=== PATIENT | male | born 1965 | race African-American/Black ===

== ENCOUNTER 2021-08-23 10:12 | Emergency (ER) | payer OTHER ==
[~2021-08-23] VITALS: Ht 160 cm; Wt 68.0 kg
[2021-08-23 11:16] VITALS: BP 181/80; TEMP 99
== END 2021-08-23 11:16 | disposition home or self-care (01) ==
LOC: ED 10:12
DX: N39.0 Urinary tract infection, site not specified (principal)
CPT/HCPCS: 81000; 87077; 87086; 87088; 87186; 96372; 99283; J0696

== ENCOUNTER 2021-10-23 19:57 | Inpatient (IN) | payer OTHER ==
[~2021-10-23] VITALS: Ht 157.5 cm; Wt 71.2 kg
[2021-10-23 20:08] VITALS: BP 144/83; TEMP 99.5
[2021-10-23 20:45] LABS: PLATELET COUNT 442 K/uL (142-355)
[2021-10-23 20:52] LABS: POTASSIUM 4.2 mmol/L (3.6-5.2)
[2021-10-23 21:00] VITALS: BP 190/94
[2021-10-23 21:30] VITALS: BP 163/88
[2021-10-23 22:00] VITALS: BP 157/95
[2021-10-23 22:30] VITALS: BP 163/84
[2021-10-23 23:00] VITALS: BP 156/92
[2021-10-24] VITALS (9 sets, daily range): BP systolic 154–183; BP diastolic 74–92; TEMP 98.2–99.2; Ht 157.5 cm; Wt 71.2 kg
[2021-10-24 10:28] LABS: POTASSIUM 4.2 mmol/L (3.6-5.2)
[2021-10-25] VITALS (7 sets, daily range): BP systolic 142–185; BP diastolic 70–95; TEMP 97.7–99.2
[2021-10-25 04:50] LABS: PLATELET COUNT 337 K/uL (142-355)
[2021-10-26] VITALS (7 sets, daily range): BP systolic 151–192; BP diastolic 77–96; TEMP 98.4–99.3
[2021-10-26] MEDS ORDERED: PROM25TA52 PO (09:02)
[2021-10-26] MEDS ORDERED: GLUCOTROL XL 5MG TAB PO (09:02)
[2021-10-26] MEDS ORDERED: CEFD300C2 PO (09:02)
[2021-10-26] MEDS ORDERED: METO50TA27 PO (09:02)
[2021-10-26] MEDS ORDERED: TAMSULOSIN HYD0.4 MG PO (09:11)
[2021-10-26 10:47] LABS: POTASSIUM 4.2 mmol/L (3.6-5.2)
== END 2021-10-26 13:47 | disposition home or self-care (01) | DRG 74 ==
LOC: ED 19:57 → MED/SURG 23:30
PROVIDERS: Internal Medicine; ADMIT Hospitalist; ATTEND Internal Medicine Endocrinology, Diabetes & Metabolism
DX: E11.40 Type 2 diabetes mellitus with diabetic neuropathy, unspecified (principal); N39.0 Urinary tract infection, site not specified; N13.39 Other hydronephrosis; N18.4 Chronic kidney disease, stage 4 (severe); N40.0 Benign prostatic hyperplasia without lower urinary tract symptoms; E11.65 Type 2 diabetes mellitus with hyperglycemia; N32.0 Bladder-neck obstruction; E11.22 Type 2 diabetes mellitus with diabetic chronic kidney disease; I12.9 Hypertensive chronic kidney disease with stage 1 through stage 4 chronic kidney disease, or unspecified chronic kidney disease
CPT/HCPCS: 36415; 80048; 80053; 80320; 81000; 82043; 82570; 83036; 83690; 84300; 84484; 85027; 87088; 87635; 93005; 94760; 96360; 96365; 96375; 99284; J0360; J0696; J1650; J1815; J1885; J2270; J2405; J3490; U0003

== ENCOUNTER 2022-05-28 20:48 | Emergency (ER) | payer BC ==
[~2022-05-28] VITALS: Ht 157.5 cm; Wt 71.2 kg
[~2022-05-28 20:48] MED LIST: CEFD300C2 PO; GLUCOTROL XL 5MG TAB PO; METO50TA27 PO; PROM25TA52 PO; TAMSULOSIN HYD0.4 MG PO
[2022-05-28 21:40] LABS: PLATELET COUNT 305 K/uL (142-355)
[2022-05-28 21:56] LABS: POTASSIUM 4.5 mmol/L (3.6-5.2)
[2022-05-29 01:38] VITALS: BP 178/92; TEMP 98.2
== END 2022-05-29 01:38 | disposition home or self-care (01) ==
LOC: ED 20:48
PROVIDERS: Emergency Medicine Emergency Medical Services
DX: N18.9 Chronic kidney disease, unspecified (principal); N39.0 Urinary tract infection, site not specified
CPT/HCPCS: 36415; 80048; 81000; 83735; 84484; 85027; 87086; 87088; 93005; 96360; 96361; 96365; 96375; 99284; J0696; J3490

== ENCOUNTER 2022-07-06 05:20 | Emergency (ER) | payer BC ==
[~2022-07-06] VITALS: Ht 157.5 cm; Wt 71.2 kg
[2022-07-06 05:26] VITALS: TEMP 97.9
[2022-07-06 06:18] LABS: PLATELET COUNT 292 K/uL (142-355)
[2022-07-06 06:33] LABS: PARTIAL THROMBOPLASTIN TIME 23.7 SECONDS (24.5-33.6)
[2022-07-06 06:34] LABS: POTASSIUM 4.5 mmol/L (3.6-5.2)
[2022-07-06 10:30] VITALS: BP 162/84
== END 2022-07-06 11:15 | disposition short-term general hospital (02) ==
LOC: ED 05:20
PROVIDERS: Emergency Medicine
PROC: 0T9B70Z Drainage of Bladder with Drainage Device, Via Natural or Artificial Opening (ICD-10-PCS; principal; 2022-07-06)
DX: N17.9 Acute kidney failure, unspecified (principal); R51.9 Headache, unspecified; I10 Essential (primary) hypertension; E11.9 Type 2 diabetes mellitus without complications; Z79.4 Long term (current) use of insulin; Z11.52 Encounter for screening for COVID-19
CPT/HCPCS: 36415; 51702; 80053; 81002; 83880; 84484; 85027; 85610; 85730; 87502; 87635; 93005; 96360; 96374; 99284; J0360; U0003

== ENCOUNTER 2022-08-17 13:51 | Emergency (ER) | payer OTHER ==
[~2022-08-17] VITALS: Ht 157.5 cm; Wt 67.6 kg
[2022-08-17 14:00] VITALS: BP 158/87; TEMP 98.1
== END 2022-08-17 15:15 | disposition home or self-care (01) ==
LOC: ED 13:51
PROC: 0T2BX0Z Change Drainage Device in Bladder, External Approach (ICD-10-PCS; principal; 2022-08-17)
DX: R33.8 Other retention of urine (principal)
CPT/HCPCS: 51702; 81002; 99283

== ENCOUNTER 2023-01-02 14:15 | Emergency (ER) | payer OTHER ==
[~2023-01-02] VITALS: Ht 157.5 cm; Wt 72.6 kg
[2023-01-02 14:41] VITALS: BP 139/82; TEMP 97.2
== END 2023-01-02 16:45 | disposition home or self-care (01) ==
LOC: ED 14:15
DX: N39.0 Urinary tract infection, site not specified (principal); R33.9 Retention of urine, unspecified
CPT/HCPCS: 81000; 87077; 87086; 87088; 87186; 99281

== ENCOUNTER 2023-01-22 21:49 | Emergency (ER) | payer OTHER | END 2023-01-22 22:20 | disposition home or self-care (01) | LOC: ED 21:49 | DX: N48.89 Other specified disorders of penis (principal); N40.1 Benign prostatic hyperplasia with lower urinary tract symptoms; R33.8 Other retention of urine; E11.9 Type 2 diabetes mellitus without complications; I10 Essential (primary) hypertension | CPT/HCPCS: 99281 ==

== ENCOUNTER 2023-02-20 13:07 | Emergency (ER) | payer OTHER ==
[~2023-02-20] VITALS: Ht 157.5 cm; Wt 68.5 kg
[2023-02-20 15:20] VITALS: BP 160/84; TEMP 97.9
== END 2023-02-20 15:25 | disposition home or self-care (01) ==
LOC: ED 13:07
DX: N40.0 Benign prostatic hyperplasia without lower urinary tract symptoms (principal); S37.30XA Unspecified injury of urethra, initial encounter
CPT/HCPCS: 81000; 96372; 99283; J2270

== ENCOUNTER 2023-03-02 11:49 | Emergency (ER) | payer OTHER ==
[~2023-03-02] VITALS: Ht 157.5 cm; Wt 68.0 kg
[2023-03-02 12:30] VITALS: BP 129/80; TEMP 98.4
== END 2023-03-02 12:30 | disposition home or self-care (01) ==
LOC: ED 11:49
DX: T83.038A Leakage of other urinary catheter, initial encounter (principal); R33.9 Retention of urine, unspecified
CPT/HCPCS: 99281

== ENCOUNTER 2023-04-02 08:34 | Emergency (ER) | payer OTHER ==
[~2023-04-02] VITALS: Ht 157.5 cm; Wt 68.0 kg
[2023-04-02 08:40] VITALS: BP 213/112; TEMP 98.3
== END 2023-04-02 08:59 | disposition home or self-care (01) ==
LOC: ED 08:34
DX: Z53.21 Procedure and treatment not carried out due to patient leaving prior to being seen by health care provider (principal)
CPT/HCPCS: 99281